=== PATIENT | male | born 1945 | race Caucasian/White ===

== ENCOUNTER 2016-10-23 20:07 | Emergency (ER) | payer MEDICARE, OTHER ==
[~2016-10-23] VITALS: Ht 175.3 cm; Wt 136.4 kg
[~2016-10-23 20:07] MED LIST: 00186-0370-20 IH; ACULAR 3 ML3 ML OU; AEROBID INHALER7 GM IH; ALBUTEROL0.09 MG/A1 IH; ALBUTEROL0.83 MG/ML IH; ANTIVERT 25MG25 MG PO; ASPIR-LOW81 MG PO; ASPIR-LOX325 MG PO; ASPIRIN 32325 MG/TAB PO; BYSTOLIC5 MG PO; CEPHALEXIN500 M1 PO; CHOLESTYRAMINE1 PO1 PO; CLARITIN 1010 MG/TAB PO; COREG 25MG25 MG/TAB PO; D-31000 IU PO; FERROUS SU325 MG/TAB PO; FORADIL AERO0.012 MG IH; HCTZ 25MG TAB25 MG; HCTZ 25MG25 MG PO; HYDRODIURIL50 MG PO; LANTUS100 U/ML; LANTUS100 U/ML SQ; LEVAQUIN 750MG750 M1 PO; LEVOXYL0.025 MG PO; LISINOPRIL10 MG PO; METFORMIN HCL1000 MG PO; NIACIN PO; NIACIN500 M2 PO; NIASPAN750 MG PO; NORVASC 10MG10 MG PO; NORVASC 5MG5 MG/TAB PO; PEPCID 20MG TAB20 MG PO; PREDNISONE20 MG PO; PROAIR HFA0.09 MG/AC IH; RT SPIRIVA18 MCG; SINGULAIR 110 MG/TAB PO; SINGULAIR PO; SINGULAIR10 MG PO; SYNTHROID 0.0.025 MG PO; THEODUR 200MG PO; VENTOLIN INHAL6.8 GM IH; VENTOLIN0.09 MG IH; VENTOLIN0.09 MG/AC IH; VITAMIN D 1001000 IU PO; ZESTRIL40 MG PO; ZETIA 10MG TAB10 MG PO; ZOCOR80 MG PO; ZYLOPRIM 300MG300 MG; ZYLOPRIM 300MG300 MG PO; ZYRTEC10 MG PO; [UNRECOGNIZED DRUG - OTHER] IH
[2016-10-23 20:11] VITALS: TEMP 97.9
[2016-10-23 21:30] LABS: BASO % 0.3 % (0.0-2.0); EOS # 0.4 (0.0-0.7); EOS % 4.1 % (0-4.0); GRAN % 68.4 % (42.2-75.2); LYMPH # 1.7 (1.2-3.4); LYMPH % 18.9 % (20.0-51.0); MEAN CELL VOLUME 88 fl (80.0-100.0); MEAN CORPUSCULAR HGB CONC 32 g/dl (33.0-37.0); MONO # 0.7 (0.1-0.6); PLATELET COUNT 216 K/mm3 (130-400); REDCELL DISTRIBUTION WIDTH-CV 15.1 % (11.5-14.5); WHITE BLOOD COUNT 8.8 K/mm3 (4.8-10.8)
[2016-10-23 21:31] LABS: HEMATOCRIT 36.2 % (42.0-52.0); HEMOGLOBIN 11.7 g/dl (13.5-18.0); MEAN CORPUSCULAR HEMOGLOBIN 29 pg (27.0-31.0)
[2016-10-23 21:38] LABS: ADJUSTED CALCIUM 9.3 mg/dL (8.4-10.2); ALBUMIN 3.7 gm/dL (3.5-5.0); BILIRUBIN,TOTAL 0.6 mg/dL (0.0-1.0); CALCIUM 9.1 mg/dL (8.4-10.2); CREATININE, serum 1.43 mg/dL (0.66-1.25); POTASSIUM 4.2 mmol/L (3.4-5.0); TOTAL PROTEIN 6.6 gm/dL (6.4-8.2)
[2016-10-23 22:06] VITALS: BP 160/72; PULSE 91
== END 2016-10-23 22:08 | disposition home or self-care (01) ==
LOC: COL.ER 20:07
PROVIDERS: Family Medicine
DX: H81.21 Vestibular neuronitis, right ear (principal); I10 Essential (primary) hypertension; J45.909 Unspecified asthma, uncomplicated